=== PATIENT | male | born 1950 | race Caucasian/White ===

== ENCOUNTER 2023-05-22 09:27 | Outpatient (CLI) | payer MEDICARE, BC ==
[2023-05-22] MEDS ORDERED: Magnevist 469MG/ML 20 ML VIAL ONE (10:34)
== END 2023-05-22 09:28 | disposition home or self-care (01) ==
LOC: CSHMRI 09:27
PROVIDERS: ATTEND Radiology Vascular & Interventional Radiology
DX: R97.20 Elevated prostate specific antigen [PSA] (principal); C61 Malignant neoplasm of prostate; Z92.3 Personal history of irradiation
CPT/HCPCS: 72197; A9579